=== PATIENT | male | born 1940 | race Caucasian/White ===

== ENCOUNTER 2019-09-24 04:13 | Emergency (ER) | payer MEDICARE, BC ==
[~2019-09-24] VITALS: Ht 177.8 cm; Wt 128.8 kg
[~2019-09-24 04:13] MED LIST: LATANOPROST2.5 ML OU; LEVAQUIN750 MG PO; MOTRIN IB200 MG PO
--- OUTSIDE RECORDS SUMMARY | 2019-09-24 08:18 | XMS ---
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 [facility] has no Care Guidelines for this patient. EShereeDSheree VISIT COUNT (12 MO.) 1 SUDHA Gardner TOTAL 1 NOTE: Visits indicate total known visits. ED/C VISIT TRACKING (12 MO.) 09/24/2019 04:13 [facility] [place] TYPE: Emergency COMPLAINT: - SOB INPATIENT VISIT TRACKING (12 MO.) 09/24/2019 08:03 [facility] DANIEL[facility] TYPE: Intensive Care DIAGNOSES: - COVID-19 Rule Out [email or web address]
--- NOTE | 2019-09-25 16:35 | EKG ---
[facility] [address] [place], [place] [address] Signed Atrial fibrillation with rapid ventricular response Left axis deviation Right bundle branch block Septal infarct , age undetermined Abnormal ECG No previous ECGs available Confirmed by LASHON GARAY DO ([id number]) on 09/25/2019 4:34:53 PM Electronically Signed By: LASHON GARAY DO 09/25/19 1635 PATIENT NAME: AMYLATASHA VALDESARD Electrocardiogram DATE OF : 36 PHYSICIAN: LASHON GARAY DO REPORT #: [id number] REPORT IS CONFIDENTIAL AND NOT TO BE RELEASED WITHOUT AUTHORIZATION
== END 2019-09-24 07:28 | disposition short-term general hospital (02) ==
LOC: ED 04:13
DX: I48.91 Unspecified atrial fibrillation (principal); I50.9 Heart failure, unspecified; J40 Bronchitis, not specified as acute or chronic; R06.03 Acute respiratory distress
CPT/HCPCS: 71045; 80053; 83605; 83880; 84484; 85025; 93005; 93010; 94644; 94660; 96374; 96375; 99291; 99292; C9803; J1956; J7030; U0002